=== PATIENT | female | born 1930 | race Two or more races ===

== ENCOUNTER 2018-05-05 23:51 | Inpatient (IN) | payer MEDICAID, MEDICARE ==
[~2018-05-05] VITALS: Ht 139.7 cm; Wt 56.2 kg
--- NOTE | 2018-05-06 02:11 | NUR ---
MS INVESTMENT ASSOCIATE INITIAL NOTES ADMIT PT FROM [place] ACCOMPANIED BY FOUR CORNER FORMER MACHINE OPERATOR AND HER DAUGHTER . DX ESOPHAGEL IMPACTION . NPO AT THIS TIME. NO SIGNS OF ANT ACUTE DISTRESS OR ANY DISCOMFORT AT THIS TIME. ASSESSMENT DONE AND RECORDED. IVF NS AT 75ML STARTED ORDERED. KEPT HER WARM AND COMFORTABLE AT ALL TIMES FAMILY AT THE BEDSIDE WILL CONTINUE MONITORING. PLACE CALL LIGHT AT REACH.
[2018-05-06 07:10] VITALS: BP 99/55
--- NOTE | 2018-05-06 07:20 | NUR ---
MS/RN OPENING NOTE THE PATIENT ALERT AND ORIENTED X3. SPEAKS RUSSIAN. IN ROOM AIR AND DENIES SOB. RESPIRATION REGULAR AND UNLABORED. DENIES PAIN. RAC G 20 PATENT AND NORMAL SALINE INFUSING AT 75ML/HR AND NO S/S INFILTRATION NOTED. PATIENT NPO. BED LOW AND LOCKED. SIDE RAILS UP X3. CALL LIGHT WITHIN REACH. WILL CONTINUE TO MONITOR.
[2018-05-06] MEDS ORDERED: DULO60CA45 PO (07:28)
[2018-05-06] MEDS ORDERED: HYDR25TA4 PO (07:28)
[2018-05-06] MEDS ORDERED: PREG75CA PO (07:28)
[2018-05-06] MEDS ORDERED: ASPI-1152 PO (07:28)
[2018-05-06] MEDS ORDERED: PENT100C9 PO (07:28)
[2018-05-06] MEDS ORDERED: AMOX500T2 PO (07:28)
[2018-05-06] MEDS ORDERED: METF-440 PO (07:28)
[2018-05-06] MEDS ORDERED: GLIM1TAB PO (07:28)
[2018-05-06] MEDS ORDERED: AMLO1CAP8 PO (07:28)
[2018-05-06] MEDS ORDERED: SITA50TA PO (07:28)
[2018-05-06 07:47] LABS: BASOPHILS # (AUTO) 0.1 /CMM (0.0-0.2); BASOPHILS % (AUTO) 0.9 % (0.0-2.0); EOSINOPHILS % (AUTO) 4.3 % (0.0-6.0); HEMATOCRIT 32 % (33-45); HEMOGLOBIN 10.4 g/dL (11.5-14.8); LYMPHOCYTES # (AUTO) 1.3 /CMM (0.8-4.8); LYMPHOCYTES % (AUTO) 16.4 % (20.0-44.0); MEAN CORPUSCULAR HGB CONC 33 g/dl (31.0-36.0); MEAN CORPUSCULAR VOLUME 81 fL (82-100); MONOCYTES # (AUTO) 0.6 /CMM (0.1-1.30); MONOCYTES % (AUTO) 8.4 % (2.0-12.0); NEUTROPHILS # (AUTO) 5.4 /CMM (1.8-8.9); PLATELET COUNT (AUTO) 253 /CMM (150-450); RED BLOOD CELL COUNT(AUTO) 3.93 MIL/uL (4.0-5.2); WHITE BLOOD COUNT (AUTO) 7.7 K/uL (4.3-11.0)
--- NOTE | 2018-05-06 07:49 | NUR ---
MS VENETIAN BLIND CLEANER AND REPAIRER CLOSING NOTES PT RESTING COMFORTABLY IN BED WITHOUT ANY ACUTE DISTRESS OR ANY DISCOMFROT. SATBEL SINCE ADMISSION. IVF STILL INFUSING. BLOOD SUGAR 72 NO COVERAGES AT THIS TIME. NO SIGNS OF HYPO GLYCEMIA NOTED. KEPT HER WARM AND COMFORTABLE AT ALL TIMES. PLACE CALL LIGHT AT REACH. ENDORSE TO AM NURSE.
[2018-05-06 08:00] VITALS: BP 112/59
[2018-05-06 08:12] LABS: ALANINE AMINOTRANSFERASE 18 U/L (12-78); ALBUMIN 2.9 g/dL (3.4-5.0); ALKALINE PHOSPHATASE 74 U/L (46-116); ASPARTATE AMINOTRANSFERASE 19 U/L (15-37); BILIRUBIN,TOTAL 0.6 mg/dL (0.2-1.0); CALCIUM, SERUM 8.8 mg/dL (8.5-10.1); CARBON DIOXIDE 29 mmol/L (21-32); CHLORIDE 102 mmol/L (98-107); CREATININE 0.7 mg/dL (0.6-1.3); GLUCOSE 72 mg/dL (74-106); PHOSPHORUS 3.3 mg/dL (2.5-4.9); POTASSIUM 3.7 mmol/L (3.5-5.1); SODIUM SERUM 140 mmol/L (136-145); TOTAL PROTEIN, SERUM 6.8 g/dL (6.4-8.2); UREA NITROGEN, BLOOD 18 mg/dL (7-18)
[2018-05-06] MEDS ORDERED: INSULIN REGULAR, HUMAN 100 UNIT/ML 3 ML VIAL SQ PRN (09:00)
[2018-05-06] MEDS ORDERED: HYDROMORPHONE INJ 0.5 MG/0.5 ML SYRINGE IV PRN (09:00)
[2018-05-06] MEDS ORDERED: ONDANSETRON HCL/PF 4 MG/2 ML VIAL IVP PRN (09:00)
[2018-05-06] MEDS ORDERED: DEXTROSE 50%-WATER 50 ML DISP.SYRIN IV PRN (09:00)
[2018-05-06] MEDS ORDERED: LORAZEPAM INJ 2 MG/ML VIAL IVP PRN (09:00)
[2018-05-06] MEDS ORDERED: hydrALAZINE HCL IV 20 MG VIAL IV PRN (09:00)
[2018-05-06] MEDS ORDERED: ACETAMINOPHEN 325 MG TABLET PO PRN (09:00)
[2018-05-06 09:04] LABS: THYROID STIMULATING HORMONE 0.444 uIU/mL (0.358-3.74)
[2018-05-06] MEDS: IV NS 0.9% 1,000 ML IV PRN ×2 (09:24→22:00)
--- NOTE | 2018-05-06 11:17 | NUR ---
MS/RN NOTE RECEIVED A CALL FROM VEENA Zaman WITH NEW ORDER OF XR ESOPHAGRAM. ORDER READ BACK, VERIFIED. NOTED AND CARRIED OUT.
[2018-05-06] MEDS: BLOOD SUGAR DIAGNOSTIC 1 EACH STRIP IN SCH ×2 (13:00→18:04)
[2018-05-06] MEDS ORDERED: BARIUM SULFATE 98% 135 ML SUSP.RECON PO ONE (14:29)
[2018-05-06 15:55] VITALS: BP 120/61
[2018-05-06 16:00] VITALS: BP 120/61
--- NOTE | 2018-05-06 17:00 | NUR ---
MS/RN NOTE VEENA Zaman IS MADE AWARE OF ESOPHAGRAM RESULT.
--- NOTE | 2018-05-06 17:53 | NUR ---
MS/RN NOTE RECEIVED ORDER FROM VEENA SORENSEN B: CLEAR LIQUID DIET FROM 05/06/18 DINNER AND NPO AFTER MIDNIGHT. NOTED AND [id number] OUT.
--- NOTE | 2018-05-06 18:06 | NUR ---
MS/RN NOTE RECEIVED ORDER FROM VEENA Zaman TO PLACE AN ORDER FOR EGD CONSENT. ORDER READ BACK, VERIFIED. NOTED AND CARRIED OUT.
--- NOTE | 2018-05-06 18:07 | NUR ---
MS/RN NOTE THE PATIENT ALERT AND ORIENTED X3. IN ROOM AIR AND OXYGEN SATURATION IS AT 97%. DENIES SOB. RESPIRATION REGULAR AND UNLABORED. DENIES PAIN. RAC G 20 PATENT AND NORMAL SALINE INFUSING AT 75ML/HR AND NO S/S INFILTRATION NOTED. PATIENT IN STABLE CONDITION. BED LOW AND LOCKED. SIDE RAILS UP X3. CALL LIGHT WITHIN REACH. WILL ENDORSE TO UPHOLSTERER LIMOUSINE AND HEARSE.
--- NOTE | 2018-05-06 19:55 | NUR ---
RN MS OPENING NOTES RECEIVED PT IN BED, AWAKE ALERT ORIENTEDX 3-4, UZBEK SPEAKING, DAUGHTER AT BED SIDE. BREATHING EVEN AND UNLABORED ON ROOM AIR, NO COUGH, CONGESTION OF SOB NOTED. NO COMPLAINT OF PAIN OR DISCOMFORT AT THIS TIME. DRINKING FLUIDS WELL WITHOUT DIFFICULTY, ASPIRATION PRECAUTIONS IN PLACE, NPO AFTER MIDNIGHT. IV ACCESS ON THE RAC #20G WITH NS @75ML/HR. BED IN LOWEST LOCKED POSITION, CALL LIGHT WITHIN REACH AT ALL TIMES.WILL CONTINUE TO MONITOR
[2018-05-06 20:00] VITALS: BP 108/57
[2018-05-06] MEDS ORDERED: PANTOPRAZOLE 40 MG VIAL IV SCH (20:00)
[2018-05-07] MEDS: BLOOD SUGAR DIAGNOSTIC 1 EACH STRIP IN SCH ×4 (00:09→17:38)
[2018-05-07 03:37] VITALS: BP 108/57
--- NOTE | 2018-05-07 06:25 | NUR ---
RN MS CLOSING NOTES PT REMAINS IN BED, SLEEPING, EASILY AROUSED TO TOUCH OR NAME CALL, FRISIAN SPEAKING,BREATHING EVEN AND UNLABORED ON ROOM AIR, NO COUGH, CONGESTION OF SOB NOTED. NO COMPLAINT OF PAIN OR DISCOMFORT AT THIS TIME. NPO FOR EGD TODAY. IV ACCESS ON THE RAC #20G WITH NS @75ML/HR. BED IN LOWEST LOCKED POSITION, CALL LIGHT WITHIN REACH AT ALL TIMES.WILL ENDORSE TO DAY SHIFT FOR MIMI
--- NOTE | 2018-05-07 07:10 | NUR ---
MS/RN NOTE THE PATIENT ALERT AND ORIENTED X3. IN ROOM AIR AND DENIES SOB. RESPIRATION REGULAR AND UNLABORED. DENIES PAIN. THE PATIENT IN NO APPARENT DISTRESS. NPO SINCE MIDNIGHT. RAC G 20 PATENT AND NORMAL SALINE INFUSING AT 75ML/HR. NO S/S INFILTRATION NOTED. BED LOW AND LOCKED. SIDE RAILS UP X3. CALL LIGHT WITHIN REACH. WILL CONTINUE TO MONITOR.
[2018-05-07 08:00] VITALS: BP 120/60
--- NOTE | 2018-05-07 09:37 | NUR ---
WOUND CARE CONSULT: PT PRESENTS WITH INTACT SKIN. PT IS AMBULATORY TO BATHROOM WITH ASSISTANCE AND CONTINENT AT THIS TIME. CURRENT LISA SCORE IS 22. WILL SEE PRN.
--- NOTE | 2018-05-07 11:20 | NUR ---
MS/RN NOTE. RECEIVED NEW ORDER FROM DR NHI Cook TO DISCONTINUE NS 75ML/HR AND START NEW ORDER FOR D5NS AT 75ML/HR PRN. READ BACK, VERIFIED. NOTED AND CARRIED OUT.
[2018-05-07] MEDS ORDERED: IV D5/ 0.9% NACL 1,000 ML IV PRN (11:30)
[2018-05-07 16:00] VITALS: BP 139/73
--- NOTE | 2018-05-07 17:18 | NUR ---
MS/RN NOTE SPOKE WITH DR MCCALL (GI) AND HE CLEAR THE PATIENT TO GET DISCHARGED.
--- NOTE | 2018-05-07 17:23 | NUR ---
MS/RN NOTE RECEIVED MECHANICAL SOFT DIET ORDER FROM DR MCCALL. THE ORDER READ BACK, VERIFIED. NOTED AND CARRIED OUT. THE PATIENT IS SERVED FOOD PER ORDER AND SHE TOLERATED THE DIET WELL. NO COUGHING, NO CHOCKING. THE PATIENT DENIES PAIN. RESPIRATION REGULAR AND UNLABORED. DENIES SOB. THE PATIENT IN STABLE CONDITION.
--- NOTE | 2018-05-07 17:39 | NUR ---
MS/RN NOTE THE PATIENT NOTED WITH TEMP OF 99.7. TYLENOL 650 MG PO GIVEN.
--- NOTE | 2018-05-07 17:43 | NUR ---
MS/RN NOTE BLOOD SUGAR 160. THE PATIENT REFUSES INSULIN DESPITE EXPLAINING RISKS AND BENEFITS.
[2018-05-07] MEDS ORDERED: ACETAMINOPHEN 325 MG TABLET PO PRN (18:00)
--- NOTE | 2018-05-07 18:10 | NUR ---
MS/RN NOTE TEMP 98.2
--- NOTE | 2018-05-07 18:20 | NUR ---
MS/RN NOTE THE PATIENT AND DAUGHTER ARE GIVEN DISCHARGE INSTRUCTIONS INCLUDING THE INFORMATION OF DR MCCALL TO MAKE AN APPOINTMENT ON Thursday05/10/18. THYE VERBALIZED UNDERSTANDING. THE PATIENT ALERT AND ORIENTED X3. DENIES SOB. RESPIRATION REGULAR AND UNLABORED. DENIES PAIN. PATIENT PICKED UP BY DAUGHTER VIA CAR. PATIENT IN STABLE CONDITION.
== END 2018-05-07 18:20 | disposition home or self-care (01) | DRG 254 ==
LOC: MED 05-06 02:04
PROC: 0DB78ZX Excision of Stomach, Pylorus, Via Natural or Artificial Opening Endoscopic, Diagnostic (ICD-10-PCS; principal; 2018-05-07)
DX: T18.128A Food in esophagus causing other injury, initial encounter (principal); E88.09 Other disorders of plasma-protein metabolism, not elsewhere classified; D64.9 Anemia, unspecified; E44.1 Mild protein-calorie malnutrition; E11.9 Type 2 diabetes mellitus without complications; I10 Essential (primary) hypertension; K29.70 Gastritis, unspecified, without bleeding; K21.0 Gastro-esophageal reflux disease with esophagitis; Z85.42 Personal history of malignant neoplasm of other parts of uterus; Z90.710 Acquired absence of both cervix and uterus; Z68.28 Body mass index [BMI] 28.0-28.9, adult; Y93.89 Activity, other specified; Y92.009 Unspecified place in unspecified non-institutional (private) residence as the place of occurrence of the external cause; Z79.84 Long term (current) use of oral hypoglycemic drugs; K22.8 Other specified diseases of esophagus; Z92.3 Personal history of irradiation; Z87.440 Personal history of urinary (tract) infections
CPT/HCPCS: 36415; 74230-TC; 80053-TC; 82962-TC; 83735-TC; 84100-TC; 84443-TC; 85025-TC; 85610-TC; 87081-TC; 88305-TC; 88313-TC; 88342; C9113; G0378; J1815; J2704; J3490; J7030; J7042